=== PATIENT | female | born 1950 | race Caucasian/White ===

== ENCOUNTER 2023-11-04 11:39 | Emergency (ER) | payer OTHER, MEDICARE ==
[~2023-11-04] VITALS: Ht 157.5 cm; Wt 63.3 kg
[~2023-11-04 11:39] MED LIST: ALDACTAZIDE 251 EACH PO; ASPIR 8181 MG PO; CENTRUM SILVER1 EAC1 PO; LOVASTATIN40 MG PO; METOPROLOL SUCC25 MG PO; OMEPRAZOLE20 MG PO; OS-CAL ULTRA T1 EACH PO; POTASSIUM CHLO10 MEQ PO
[2023-11-04 13:18] VITALS: BP 166/82
== END 2023-11-04 13:18 | disposition home or self-care (01) ==
LOC: ED 11:39
DX: S01.81XA Laceration without foreign body of other part of head, initial encounter (principal); I10 Essential (primary) hypertension; W01.0XXA Fall on same level from slipping, tripping and stumbling without subsequent striking against object, initial encounter; Z79.899 Other long term (current) drug therapy
CPT/HCPCS: 12011; 70450; 99283-25; A9270